=== PATIENT | female | born 2000 | race Two or more races ===

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

== ENCOUNTER 2021-02-10 07:59 | Emergency (ER) | payer SELFPAY ==
[~2021-02-10] VITALS: Ht 157.5 cm; Wt 98.7 kg
[2021-02-10 09:14] VITALS: BP 123/79
--- NOTE | 2021-02-10 09:18 | NUR ---
pt presents to ed with c/o bilateral upper abd pain that has been ongoing for 3 years but much worse today. pt has hx of GERD and has current UTI. pt a&o, resps even and unlabored, vss, nadn. erpa at bedside for eval.
[2021-02-10] MEDS ORDERED: ONDANSETRON ODT 4 MG ONE (09:27)
[2021-02-10] MEDS ORDERED: MAALOX/HYOSCYAMINE/LIDOCAINE 45 ML BTL ONE (09:27)
[2021-02-10] MEDS ORDERED: FAMOTIDINE 20 MG TABLET ONE (09:27)
[2021-02-10 09:30] LABS: BASOPHILS % (AUTO) 1 % (0-1); EOSINOPHILS % (AUTO) 2 % (1-7); LYMPHOCYTES % (AUTO) 25 % (22-44); MEAN CORPUSCULAR HEMOGLOBIN 26.7 pg (27.0-34.8); MEAN CORPUSCULAR HGB CONC 34.5 g/dL (32.4-35.8); MONOCYTES % (AUTO) 8 % (2-9); NEUTROPHILS % (AUTO) 64 % (42-75); PLATELET COUNT 269 x10^3/uL (130-400); RED BLOOD COUNT 5.58 x10^6/uL (3.82-5.3); RED CELL DISTRIBUTION WIDTH 13.4 % (9.6-15.2)
[2021-02-10] MEDS ORDERED: MAALOX/HYOSCYAMINE/LIDOCAINE 45 ML BTL PO ONE (09:30)
[2021-02-10] MEDS ORDERED: ONDANSETRON ODT 4 MG PO ONE (09:30)
[2021-02-10] MEDS ORDERED: FAMOTIDINE 20 MG TABLET PO ONE (09:30)
--- NOTE | 2021-02-10 09:30 | NUR ---
PT MEDICATED PER ORDER, TOLERATED WELL. VSS, NADN, CALL LIGHT IN REACH.
[2021-02-10 09:38] LABS: MICROSCOPIC NOT IND
[2021-02-10 09:43] LABS: ALANINE AMINOTRANSFERASE 62 U/L (12-78); ALBUMIN 3.9 g/dL (3.4-5.0); CALCIUM 9.4 mg/dL (8.5-10.1); CREATININE 0.78 mg/dL (0.55-1.02)
[2021-02-10 09:48] LABS: ALKALINE PHOSPHATASE 95 U/L (45-117); BILIRUBIN,TOTAL 0.5 mg/dL (0.2-1.0); TOTAL PROTEIN 8.3 g/dL (6.4-8.2)
--- NOTE | 2021-02-10 09:52 | NUR ---
REPORT FROM JEANNIE DAN. ASSUMED CARE
[2021-02-10 09:53] LABS: ANION GAP 1 mmol/L (5-15); CHLORIDE 111 mmol/L (98-107)
--- NOTE | 2021-02-10 10:01 | NUR ---
US IN WITH PT
== END 2021-02-10 11:23 | disposition home or self-care (01) ==
LOC: ED 10:16
DX: K21.9 Gastro-esophageal reflux disease without esophagitis (principal); R10.13 Epigastric pain; E66.9 Obesity, unspecified
CPT/HCPCS: 36415; 76700; 80053; 81003; 83690; 84703; 85025; 99284; Q0162